=== PATIENT | female | born 1950 | race Caucasian/White ===

== ENCOUNTER → 2017-04-20 | Outpatient (CLI) | payer MEDICARE, OTHER ==
[2017-04-20] MEDS: SINCALIDE 1.81 MCG in IV NORMAL SALINE 50ML 30 ML IV (09:15)
== END | disposition home or self-care (01) ==
LOC: NM 08:06
DX: K85.90 Acute pancreatitis without necrosis or infection, unspecified (principal)
CPT/HCPCS: 74181; 78226; 96374; 96375; A9537; J2805